=== PATIENT | male | born 1960 | race Caucasian/White ===

== ENCOUNTER → 2016-12-28 | Day surgery (SDC) | payer BC ==
[~2016-12-28] MED LIST: ACETAMINOPHEN 325 MG TAB ONE; DEXAMETHASONE SOD PHOS 4 MG/ML VIAL ONE; EPINEPHrine HCL (1:1000) 1 MG/ML VIAL ONE; LACTATED RINGER'S 1000 ML INJ 1,000 ML ONE; MIDAZOLAM HCL 2 MG/2 ML VIAL ONE; MOXIFLOXACIN 0.5% OPHT SOLN 3 ML BTL ONE; ONDANSETRON HCL 4 MG/2 ML VIAL IV PUSH ONE; PHENYLEPHRINE HCL 10% OPTH SOLN 5 ML BTL ONE; PROPOFOL 200 MG/20 ML AMP IV ONE; SODIUM CHLORIDE 0.9% INJ 10 ML ONE; TETRACAINE 0.5% OPTH SOLN 15 ML BTL ONE; TOBRAMYCIN/DEXAMETHASONE OPTH OINT 3.5 GM TUBE LEFT EYE ONE; ceFAZolin INJ 1,000 MG VIAL ONE; prednisoLONE ACETATE 1% OPHT SUSP 5 ML BTL ONE
--- NOTE | 2017-01-04 08:27 | TN ---
cc: DOUGLAS HAJI MD DATE OF SURGERY: 12/28/2016 PREOPERATIVE DIAGNOSIS Retinal detachment, multiple retinal tears, left eye. POSTOPERATIVE DIAGNOSIS Retinal detachment, multiple retinal tears, left eye. PROCEDURE Pars vitrectomy, retinal detachment repair, air-fluid exchange, endolaser, insertion of 18% SF6 gas, left eye. COMPLICATIONS None. ESTIMATED BLOOD LOSS Less than 1 cc. ANESTHESIA General, Dr. Peck. INDICATION FOR PROCEDURE The patient presented with a retinal detachment in his left eye. The patient elected to proceed with surgical correction in hopes to salvage remaining vision. The patient understands the risks, benefits and alternatives and wishes to proceed. PROCEDURE NOTE After informed consent was carried out, the patient was brought to the operating room where anesthesia was established. The left eye was prepped and draped in a sterile fashion with Betadine in the conjunctival fornix. A three-port pars plana vitrectomy was established with a self-retaining infusion cannula. The core vitreous was removed and vitreous traction to the peripheral retina was relieved. Careful attention was paid surrounding multiple retinal tears to relieve all vitreous traction. PFO was instilled and subretinal fluid was removed. Endolaser was applied surrounding multiple retinal tears. Air-fluid exchange was carried out and the retina remained nicely attached. 18% SF6 gas was instilled. Trocars were removed and sclerotomies closed. Subconjunctival injections of Ancef and dexamethasone were given. The eye was patched with tobramycin ointment. The patient was brought to the recovery room in stable condition. He is to continue follow-up with [facility] for his. postoperative care. MD RAHEEM Rojas/JAMES /6:59 PM /8:07 AM
== END | disposition home or self-care (01) ==
LOC: ESDC 07:06
PROVIDERS: ATTEND Ophthalmology
DX: H33.022 Retinal detachment with multiple breaks, left eye (principal)
CPT/HCPCS: 00145; 67108; J0171; J0690; J1100; J2250; J2405; J3010; J7120